=== PATIENT | male | born 1940 | race Caucasian/White ===

== ENCOUNTER 2023-01-10 12:45 | Emergency (ER) | payer MEDICARE ==
--- NOTE | 2023-01-10 13:04 | ERPHSYRPT ---
- History of Present Illness Time Seen by Provider: 01/10/23 13:04 Historian: patient, family Exam Limitations: no limitations Physician History: This is an 82-year-old white male patient who has a history of coronary artery disease and also has episodes of coughing who presents to the emergency department with epigastric and mid abdominal pain and significant coughing spells. He is post his seventh esophageal dilatation procedure that was performed at an outpatient surgery center near [facility] in [facility]. He and his and daughter were traveling home to [place]. Patient, patient's family states that the patient was having postprocedural abdominal pain and significant coughing spells at the surgery center. He was discharged to home. His symptoms worsened and we were the closest facility. Patient's physician who performed the procedure is Dr. Babcock(?). Upon arrival to the emergency department the patient was hypoxic with a room air oxygenation saturation level of 86%. He was then placed on 4 L of oxygen via oxy mask and increased his oxygen saturation to 95%. Timing/Duration: today Activities at Onset: none Quality: tightness Abdominal Pain Onset Location: epigastric, other Pain Radiation: no radiation (Mid abdomen) Severity of Pain-Max: moderate Severity of Pain-Current: moderate Modifying Factors: Improves With: nothing Associated Symptoms: other (Coughing) Previous symptoms: recently seen, recently treated Allergies/Adverse Reactions: No Known Drug Allergies Allergy (Unverified 01/10/23 13:55) Travel Risk - International Travel Have you traveled outside of the country in past 3 weeks: No - Coronavirus Screening Are you exhibiting any of the following symptoms?: No Close contact with a COVID-19 positive Pt in past 14-21 Days: No - Review of Systems Constitutional: No Symptoms Eyes: No Symptoms Ears, Nose, & Throat: No Symptoms Respiratory: Cough Cardiac: No Symptoms Abdominal/Gastrointestinal: Abdominal Pain Genitourinary Symptoms: No Symptoms (Gastric and mid abdomen) Musculoskeletal: No Symptoms Skin: No Symptoms Neurological: No Symptoms Psychological: No Symptoms Endocrine: No Symptoms Hematologic/Lymphatic: No Symptoms Immunological/Allergic: No Symptoms All Other Systems: Reviewed and Negative - Past Medical History Pertinent Past Medical History: Yes - Past Surgical History Past Surgical History: Yes - Nursing Vital Signs Nursing Vital Signs: Initial Vital Signs Temperature 96.1 F 01/10/23 12:45 Pulse Rate 68 01/10/23 12:45 Respiratory Rate 32 H 01/10/23 12:45 Blood Pressure 135/64 01/10/23 12:45 O2 Sat by Pulse Oximetry 86 L 01/10/23 12:45 Pain Scale Pain Intensity 9 - Physical Exam General Appearance: mild distress, alert, anxiety Eye Exam: PERRL/EOMI, eyes nml inspection Ears, Nose, Throat Exam: normal ENT inspection, moist mucous membranes Neck Exam: normal inspection, non-tender, supple, full range of motion Respiratory Exam: normal breath sounds, lungs clear, respiratory distress, airway intact (Mild), No chest tenderness Cardiovascular Exam: regular rate/rhythm, normal heart sounds, normal peripheral pulses Gastrointestinal/Abdomen Exam: soft, normal bowel sounds, tenderness (Epigastrium), guarding ( to palpation epigastrium to palpation), No rebound Rectal Exam: not done Back Exam: normal inspection, normal range of motion, No CVA tenderness, No vertebral tenderness Extremity Exam: normal inspection, normal range of motion, pelvis stable Neurologic Exam: alert, oriented x 3, cooperative, boot turner II-XII nml as tested, normal mood/affect Skin Exam: normal color, warm, dry Lymphatic Exam: No adenopathy SpO2 Interpretation: hypoxic O2 Delivery: Room Air - Course Nursing assessment & vital signs reviewed: Yes Ordered Tests: Active Orders 24 hr Category Date Time Status EKG-ER Only STAT Care 01/10/23 14:21 Active IV Insertion STAT Care 01/10/23 14:02 Active ABDOMEN AND PELVIS W/0 CONTRAS [CT] Stat Exams 01/10/23 14:03 Completed CHEST WITHOUT CONTRAST [CT] Stat Exams 01/10/23 14:11 Completed AMYLASE Stat Lab 01/10/23 13:55 Completed CBC W DIFF Stat Lab 01/10/23 13:55 Completed CMP Stat Lab 01/10/23 13:55 Completed LIPASE Stat Lab 01/10/23 13:55 Completed NT PRO BNPII Stat Lab 01/10/23 Completed POCT GLUCOSE Stat Lab 01/10/23 16:40 Completed TROPONIN Q4H Lab 01/10/23 14:35 Completed TROPONIN Q4H Lab 01/10/23 18:30 Ordered TROPONIN Q4H Lab 01/10/23 22:30 Ordered UA W/RFX UR CULTURE Stat Lab 01/10/23 14:11 Completed Medication Summary Generic Name Dose Route Start Last Admin Trade Name Freq PRN Reason Stop Dose Admin Sodium Chloride 1,000 mls @ 100 mls/hr 01/10/23 14:15 01/10/23 14:14 Sodium Chloride 0.9% 1000 Ml IV 02/09/23 14:14 100 mls/hr .Q10H LAKEISHA Administration Ampicillin Sodium/Sulbactam 100 mls @ 200 mls/hr 01/10/23 16:58 Sodium 3 g/ Sodium Chloride IV 01/10/23 17:27 STAT ONE Discontinued Medications Generic Name Dose Route Start Last Admin Trade Name Kristen PRN Reason Stop Dose Admin Hydromorphone HCl 1 mg 01/10/23 14:02 01/10/23 14:14 Hydromorphone 1 Mg/1ml Inj IV 01/10/23 14:03 1 mg STAT ONE Administration Hydromorphone HCl Confirm 01/10/23 14:13 Hydromorphone 1 Mg/1ml Inj Administered 01/10/23 14:14 Dose 1 mg .ROUTE .STK-MED ONE Hydromorphone HCl Confirm 01/10/23 16:33 Hydromorphone 1 Mg/1ml Inj Administered 01/10/23 16:34 Dose 1 mg .ROUTE .STK-MED ONE Hydromorphone HCl 0.5 mg 01/10/23 16:39 01/10/23 16:40 Hydromorphone 1 Mg/1ml Inj IV 01/10/23 16:40 0.5 mg STAT ONE Administration Ondansetron HCl 4 mg 01/10/23 14:02 01/10/23 14:14 Ondansetron Hcl 4 Mg/2 Ml Vial IV 01/10/23 14:03 4 mg STAT ONE Administration Ondansetron HCl Confirm 01/10/23 14:13 Ondansetron Hcl 4 Mg/2 Ml Vial Administered 01/10/23 14:14 Dose 4 mg .ROUTE .STK-MED ONE Lab/Rad Data: Laboratory Result Diagrams 01/10/23 13:55 01/10/23 13:55 Laboratory Results 01/10/23 01/10/23 01/10/23 Range/Units Unknown 16:40 14:35 WBC (4.0-10.5) x10^3/uL RBC (4.1-5.6) x10^6/uL Hgb (12.5-18.0) g/dL Hct (42-50) % MCV (78-100) fL MCH (26-32) pg MCHC (32-36) g/dL RDW (11.5-14.0) % Plt Count (150-450) x10^3/uL MPV (7.5-11.0) fL Gran % (36.0-66.0) % Immature Gran % (Auto) (0.00-0.4) % Nucleat RBC Rel Count (0.00-0.1) % Eos # (Auto) (0-0.5) x10^3/uL Immature Gran # (Auto) (0.00-0.03) x10^3u/L Absolute Lymphs (auto) (1.0-4.6) x10^3/uL Absolute Monos (auto) (0.0-1.3) x10^3/uL Absolute Nucleated RBC (0.00-0.01) x10^3u/L Lymphocytes % (24.0-44.0) % Monocytes % (0.0-12.0) % Eosinophils % (0.00-5.0) % Basophils % (0.0-0.4) % Absolute Granulocytes (1.4-6.9) x10^3/uL Basophils # (0-0.4) x10^3/uL Sodium (137-145) mmol/L Potassium (3.5-5.1) mmol/L Chloride (98-107) mmol/L Carbon Dioxide (22-30) mmol/L Anion Gap (5-15) MEQ/L BUN (9-20) mg/dL Creatinine (0.66-1.25) mg/dL Estimated GFR ML/MIN Glucose (74-106) mg/dL POC Glucometer 174 H (74 to 106) mg/dL Calcium (8.4-10.2) mg/dL Total Bilirubin (0.2-1.3) mg/dL AST (17-59) U/L ALT (0-50) U/L Alkaline Phosphatase (38-126) U/L Troponin I < 0.012 (0.000-0.034) ng/mL NT-Pro-B Natriuret Pep 383 (<300) pg/mL Serum Total Protein (6.3-8.2) g/dL Albumin (3.5-5.0) g/dL Amylase (30-110) U/L Lipase (23-300) U/L Urine Color (Yellow) Urine Appearance (Clear) Urine pH (4.6-8.0) Ur Specific [place] (1.005-1.030) Urine Protein (Negative) Urine Glucose (UA) (Negative) mg/dL Urine Ketones (Negative) Urine Blood (Negative) Urine Nitrite (Negative) Urine Bilirubin (Negative) Urine Urobilinogen (0.2) mg/dL Ur Leukocyte Esterase (Negative) U Hyaline Cast (Auto) (0-2) /LPF Urine Microscopic RBC (0-5) /HPF Urine Microscopic WBC (0-5) /HPF Ur Epithelial Cells (None Seen) /HPF Urine Bacteria (None Seen) /HPF Urine Culture Reflexed (NO) 01/10/23 01/10/23 01/10/23 Range/Units 14:11 13:55 13:55 WBC 10.7 H (4.0-10.5) x10^3/uL RBC 4.56 (4.1-5.6) x10^6/uL Hgb 13.1 (12.5-18.0) g/dL Hct 41.3 L (42-50) % MCV 90.6 (78-100) fL MCH 28.7 (26-32) pg MCHC 31.7 L (32-36) g/dL RDW 15.6 H (11.5-14.0) % Plt Count 169 (150-450) x10^3/uL MPV 11.3 H (7.5-11.0) fL Gran % 88.8 H (36.0-66.0) % Immature Gran % (Auto) 0.5 H (0.00-0.4) % Nucleat RBC Rel Count 0.0 (0.00-0.1) % Eos # (Auto) 0.01 (0-0.5) x10^3/uL Immature Gran # (Auto) 0.05 H (0.00-0.03) x10^3u/L Absolute Lymphs (auto) 0.81 L (1.0-4.6) x10^3/uL Absolute Monos (auto) 0.31 (0.0-1.3) x10^3/uL Absolute Nucleated RBC 0.00 (0.00-0.01) x10^3u/L Lymphocytes % 7.6 L (24.0-44.0) % Monocytes % 2.9 (0.0-12.0) % Eosinophils % 0.1 (0.00-5.0) % Basophils % 0.1 (0.0-0.4) % Absolute Granulocytes 9.48 H (1.4-6.9) x10^3/uL Basophils # 0.01 (0-0.4) x10^3/uL Sodium 142 (137-145) mmol/L Potassium 4.2 (3.5-5.1) mmol/L Chloride 105 (98-107) mmol/L Carbon Dioxide 26 (22-30) mmol/L Anion Gap 14.8 (5-15) MEQ/L BUN 13 (9-20) mg/dL Creatinine 0.94 (0.66-1.25) mg/dL Estimated GFR > 60.0 ML/MIN Glucose 168 H (74-106) mg/dL POC Glucometer (74 to 106) mg/dL Calcium 8.9 (8.4-10.2) mg/dL Total Bilirubin 0.90 (0.2-1.3) mg/dL AST 25 (17-59) U/L ALT 20 (0-50) U/L Alkaline Phosphatase 123 (38-126) U/L Troponin I (0.000-0.034) ng/mL NT-Pro-B Natriuret Pep (<300) pg/mL Serum Total Protein 7.0 (6.3-8.2) g/dL Albumin 4.2 (3.5-5.0) g/dL Amylase 65 (30-110) U/L Lipase 36 (23-300) U/L Urine Color Yellow (Yellow) Urine Appearance Clear (Clear) Urine pH 7.0 (4.6-8.0) Ur Specific [place] 1.015 (1.005-1.030) Urine Protein Negative (Negative) Urine Glucose (UA) Negative (Negative) mg/dL Urine Ketones Negative (Negative) Urine Blood Negative (Negative) Urine Nitrite Negative (Negative) Urine Bilirubin Negative (Negative) Urine Urobilinogen 1.0 A (0.2) mg/dL Ur Leukocyte Esterase Negative (Negative) U Hyaline Cast (Auto) NONE SEEN (0-2) /LPF Urine Microscopic RBC 0-2 (0-5) /HPF Urine Microscopic WBC 0-2 (0-5) /HPF Ur Epithelial Cells None Seen (None Seen) /HPF Urine Bacteria None Seen (None Seen) /HPF Urine Culture Reflexed NO (NO) - Progress Progress: improved, pain not gone completely, re-examined Progress Note: 01/10/23 14:45 This patient's medical issue is 1 of moderate complexity. Level complexity in the work-up performed is based on the review of the patient's past medical history, review the patient's medication list, history present illness and physical findings on examination. Work-up includes placement of intravenous line, twelve-lead EKG, troponin level, CT of the chest with oral contrast, CT scan of the abdomen pelvis without contrast. CBC, CMP, amylase and lipase and urinalysis were also obtained. I did review some records from outside [facility]surgery center from today's upper endoscopy with esophageal dilatation. The full chart was not faxed over. 01/10/23 17:06 I reviewed the patient's lab results and interpreted them. Patient has mild leukocytosis with a left shift. He has a normal troponin level and normal BNP level. From the laboratory standpoint he does not appear to have anything acute or emergent. The CT scan of the abdomen pelvis without contrast was interpreted by the radiologist and I reviewed the impression. There is mild diffuse fecal stasis and an enlarged prostate gland There is bilateral renal renal cysts. The remainder of abdominal and pelvic CT without contrast is negative. The CT scan of the chest with oral Gastrografin shows small hiatal hernia with gastroesophageal reflux disease. It is negative for pneumomediastinum or esophageal perforation. There is bilateral lower consolidating/nonconsolidating airspace disease with small right effusion.? Aspiration pneumonia 01/10/23 17:08 The family prefers to be transferred to [facility]. 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 We placed a call into their facility and Dr. Sanchez, the hospitalist on this evening, except the patient in transfer after I reviewed the patient history, presenting complaint, work-up results and radiographic study results. The facility is to contact us when a bed becomes available. Counseled pt/family regarding: lab results, diagnosis, rad results Medical Desision Making - Independent Historian Additional History obtained from: Spouse, Child - Diagnostic Testing Diagnostic test were ordered, analyzed, and reviewed by me: Yes Radiological Interpretation: Reviewed by me, Teleradiologist Report - Risk of complications The pt has a high risk of morbidity or mortality based on: Decision regarding hospitilization or escalation of hosp level of care - Departure Departure Disposition: Transfer Clinical Impression: Aspiration pneumonia, Hypoxia Condition: Stable Critical Care Time: No Referrals: DOCTOR,NO FAMILY [Primary Care Provider] - Follow up/PCP as directed
[2023-01-10] MEDS ORDERED: Hydromorphone 1 mg/ml Injection IV ONE ×3 (14:02→18:27)
[2023-01-10] MEDS ORDERED: Zofran 4 MG/2 ML VIAL IV ONE (14:02)
[2023-01-10] MEDS ORDERED: Zofran 4 MG/2 ML VIAL ONE (14:13)
[2023-01-10] MEDS ORDERED: Hydromorphone 1 mg/ml Injection ONE ×3 (14:13→18:28)
[2023-01-10] MEDS ORDERED: Sodium Chloride 0.9% 1000 ML 1,000 ML ONE (14:13)
[2023-01-10] MEDS ORDERED: Sodium Chloride 0.9% 1000 ML 1,000 ML IV SCH (14:15)
[2023-01-10 14:27] LABS: Absolute Neutrophil Ct (ANC) 9.48 x10^3/uL (1.4-6.9); BASOPHIL % 0.1 % (0.0-0.4); Basophil (Absolute #) 0.01 x10^3/uL (0-0.4); Eosinophil % 0.1 % (0.00-5.0); Eosinophil (Absolute #) 0.01 x10^3/uL (0-0.5); Hematocrit 41.3 % (42-50); Hemoglobin 13.1 g/dL (12.5-18.0); IMMATURE GRAN # 0.05 x10^3u/L (0.00-0.03); IMMATURE GRAN % 0.5 % (0.00-0.4); Lymphocyte (Absolute #) 0.81 x10^3/uL (1.0-4.6); Lymphocytes % 7.6 % (24.0-44.0); Mean Cell Volume 90.6 fL (78-100); Mean Corpuscular Hemoglobin 28.7 pg (26-32); Mean Corpuscular Hgb Concent. 31.7 g/dL (32-36); Mean Platelet Volume 11.3 fL (7.5-11.0); Monocyte (Absolute #) 0.31 x10^3/uL (0.0-1.3); Monocytes % 2.9 % (0.0-12.0); Neutrophil % 88.8 % (36.0-66.0); Platelet Count 169 x10^3/uL (150-450); Red Blood Count 4.56 x10^6/uL (4.1-5.6); Red Cell Distribution Width 15.6 % (11.5-14.0); White Blood Count 10.7 x10^3/uL (4.0-10.5)
[2023-01-10 14:39] LABS: Appearance Clear (Clear); Bacteria None Seen /HPF (None Seen); Bilirubin Negative (Negative); Blood Negative (Negative); Epithelial Cells None Seen /HPF (None Seen); Glucose, Urine Negative (Negative); Hyaline Casts NONE SEEN /LPF (0-2); Ketones Negative (Negative); Leukocyte Esterase Negative (Negative); Nitrite Negative (Negative); Protein,Urine Dip Negative (Negative); Specific Gravity 1.015 (1.005-1.030); WBC 0-2 /HPF (0-5)
[2023-01-10 14:40] LABS: ALBUMIN 4.2 g/dL (3.5-5.0); ALKALINE PHOSPHATASE 123 U/L (38-126); AMYLASE 65 U/L (30-110); ANION GAP 14.8 MEQ/L (5-15); BLOOD UREA NITROGEN 13 mg/dL (9-20); CHLORIDE 105 mmol/L (98-107); Calcium 8.9 mg/dL (8.4-10.2); Carbon Dioxide 26 mmol/L (22-30); Creatinine 1 0.94 mg/dL (0.66-1.25); EST GLOMERULAR FILTRATION RATE > 60.0 ML/MIN; Glucose 168 mg/dL (74-106); LIPASE 36 U/L (23-300); Potassium 4.2 mmol/L (3.5-5.1); SGOT/AST 25 U/L (17-59); SGPT/ALT 20 U/L (0-50); SODIUM 142 mmol/L (137-145)
[2023-01-10 14:55] LABS: ADD URINE CULTURE? NO (NO); RBC 0-2 /HPF (0-5)
--- NOTE | 2023-01-10 15:59 | XRAY ---
Indication: Epigastric pain post esophageal dilatation. Multiple contiguous axial images obtained through the chest without IV contrast. Water-soluble Gastrografin used. Comparison: None Small hiatal hernia with small amount of Gastrografin contrast scattered throughout esophagus presumed from gastroesophageal reflux. No abnormal extravasation of contrast or pneumomediastinum. Heart borderline enlarged. Aorta mildly arteriosclerotic without aneurysm. Tiny subcarinal calcified nodes. No pathologic mediastinal lymphadenopathy. Lungs demonstrates posterior bilateral lower lobe consolidating/nonconsolidating airspace disease with small right effusion. No pneumothorax. Bony thorax intact with osteopenia and mild degenerative changes throughout the spine. CT abdomen/pelvis reported separately. Impression: 1. Small hiatal hernia with GERD. 2. Negative for pneumomediastinum or esophageal perforation. 3. Bilateral lower lobe consolidating/nonconsolidating airspace disease with small right effusion. Rule out aspiration pneumonia.
--- NOTE | 2023-01-10 16:03 | XRAY ---
Indication: Epigastric pain post esophageal dilatation. Multiple contiguous axial images obtained through the abdomen and pelvis without IV contrast. Water-soluble Gastrografin used. Comparison: None CT chest reported specifically. Small amount of enteric contrast in the stomach. Additional radiopacities throughout the colon either ingested medication versus bismuth. Stomach and bowel loops appear nonobstructed with normal appendix. Mild diffuse scattered colonic fecal debris throughout. No free fluid/air. Enlarged prostate gland impresses on base of bladder. Bilateral renal cysts, largest right lower pole measuring 5.8 cm. Mildly distended gallbladder without gallstones. Scattered tiny hepatic/splenic calcified granulomas. Remaining liver, gallbladder, pancreas, spleen, adrenal glands, kidneys, ureters, and bladder are unremarkable for noncontrast exam. Mild scattered aortoiliac calcifications without AAA. Osseous structures intact with osteopenia and minimal/mild degenerative changes throughout the spine. Impression: 1. Mild diffuse fecal stasis, enlarged prostate gland, bilateral renal cysts, arteriosclerotic disease, chronic bony findings, and old granulomatous disease. 2. Remaining CT abdomen/pelvis without contrast exam is negative.
[2023-01-10] MEDS ORDERED: Unasyn 3 GM Vial*** 3 G in Sodium Chloride 0.9% 100 ML IV ONE (16:58)
[2023-01-10] MEDS ORDERED: Unasyn 3 GM Vial ONE (17:11)
[2023-01-10] MEDS ORDERED: Sodium Chloride 0.9% 100 ML ONE (17:11)
[2023-01-10 17:53] VITALS: BP 150/80
[2023-01-10 18:09] VITALS: PULSE 98; RESP 19; TEMP 98; O2SAT 98
== END 2023-01-10 19:07 | disposition short-term general hospital (02) ==
LOC: ED 12:45
DX: J69.0 Pneumonitis due to inhalation of food and vomit (principal); R09.02 Hypoxemia; R10.13 Epigastric pain; R05.9 Cough, unspecified
CPT/HCPCS: 36000; 36415; 71250; 74176; 80053; 81001; 82150; 82947; 83690; 83880; 84484; 85025; 93005; 96365; 96374; 96375; 96376; 99285; J0295; J1170; J2405